=== PATIENT | male | born 1995 | race Caucasian/White ===

== ENCOUNTER 2023-10-13 17:47 | Emergency (ER) | payer SELFPAY ==
[~2023-10-13] VITALS: Ht 172.7 cm; Wt 64.4 kg
[2023-10-13 18:03] VITALS: BP_SYST 142; PULSE 88; RESP 20; TEMP 98.4; O2SAT 98
== END 2023-10-13 19:29 | disposition left against medical advice (07) ==
LOC: SED 17:47
DX: M25.572 Pain in left ankle and joints of left foot (principal); Z53.21 Procedure and treatment not carried out due to patient leaving prior to being seen by health care provider
CPT/HCPCS: 99281